=== PATIENT | female | born 1960 | race Caucasian/White ===

== ENCOUNTER → 2016-12-09 | Outpatient (CLI) | payer OTHER ==
--- NOTE | 2016-12-09 15:41 | KCIC ---
CHEST PA LATERAL History: Adult General medical exam. Comparison: None. Findings: Cardiac size upper limits of normal. Pulmonary vasculature is normal. The lungs are clear. No pleural effusion or pneumothorax is seen. There is no acute bone abnormality. IMPRESSION: No acute cardiopulmonary process. Electronically signed by: Serge Rico MD (12/09/2016 3:38 PM) [id number]
--- NOTE | 2016-12-09 15:57 | KCIC ---
ANKLE RIGHT 3V, FOOT RIGHT 3V Indication: Pain and swelling of the ankle and foot. Injury November 24. . Pain is generalized. Comparison: No comparison is available. FINDINGS: Right ankle Soft tissue swelling at the lateral ankle. No evidence of acute fracture or bone destruction. Joint spaces are intact. Incidentally noted os trigonum. Right foot No evidence of acute fracture or bone destruction. Joint spaces and alignment are intact. Mild degenerative spurring at the first tarsometatarsal joint. IMPRESSION: No evidence of acute fracture or dislocation. Lateral ankle soft tissue swelling. Electronically signed by: Hussain Bojorquez MD (12/09/2016 3:55 PM) [id number]
== END | disposition home or self-care (01) ==
LOC: KCIC 14:37
PROVIDERS: ATTEND Physician Assistant Medical
DX: Z00.00 Encounter for general adult medical examination without abnormal findings (principal); M25.571 Pain in right ankle and joints of right foot
CPT/HCPCS: 71020; 73610; 73630